=== PATIENT | male | born 1960 | race Caucasian/White ===

== ENCOUNTER 2018-10-19 13:36 | Outpatient (CLI) | payer OTHER | END 2018-10-19 13:40 | disposition home or self-care (01) | LOC: LAB 13:36 | DX: N30.00 Acute cystitis without hematuria (principal) ==

== ENCOUNTER 2020-09-01 10:26 | Outpatient (CLI) | payer OTHER | END 2020-09-01 10:33 | disposition home or self-care (01) | LOC: RAD 10:26 | PROVIDERS: ATTEND Internal Medicine Endocrinology, Diabetes & Metabolism | DX: I11.0 Hypertensive heart disease with heart failure (principal); R05 Cough; E78.2 Mixed hyperlipidemia ==